=== PATIENT | female | born 1950 | race Caucasian/White ===

== ENCOUNTER → 2023-09-18 | Day surgery (SDC) | payer MEDICARE ==
[~2023-09-18] MED LIST: Dextrose 5%-0.45% NaCl 1,000 ML IV SCH; Midazolam 1 MG/ML 2 ML SDV IV ONE; Midazolam 1 MG/ML 2 ML SDV ONE; fentaNYL 100 MCG/2 ML SDV IV ONE; fentaNYL 100 MCG/2 ML SDV ONE
[2023-09-18] MEDS: fentaNYL 100 MCG/2 ML SDV IV ONE ×2 (06:31→06:32)
[2023-09-18] MEDS: Midazolam 1 MG/ML 2 ML SDV IV ONE ×6 (06:32→06:43)
== END ==
LOC: DL.ENDO 05:24
PROVIDERS: ATTEND Internal Medicine Gastroenterology
DX: K52.831 Collagenous colitis (principal); E78.00 Pure hypercholesterolemia, unspecified; E03.9 Hypothyroidism, unspecified; G47.33 Obstructive sleep apnea (adult) (pediatric); E66.9 Obesity, unspecified; Z68.32 Body mass index [BMI] 32.0-32.9, adult
CPT/HCPCS: 88305; J2250; J3010

== ENCOUNTER 2025-01-06 05:39 | Day surgery (SDC) | payer MEDICARE ==
[2025-01-06] MEDS ORDERED: Propofol 200 MG/20 ML SDV IV ONE (05:40)
[2025-01-06] MEDS ORDERED: Lactated Ringers 1,000 ML IV ONE (05:40)
[2025-01-06] MEDS ORDERED: Propofol 200 MG/20 ML SDV ONE (05:51)
[2025-01-06] MEDS: Lactated Ringers 1,000 ML IV SCH (06:04)
== END 2025-01-06 08:07 | disposition home or self-care (01) ==
LOC: DL.ENDO 05:39
PROVIDERS: ATTEND Internal Medicine Gastroenterology
DX: K21.00 Gastro-esophageal reflux disease with esophagitis, without bleeding (principal); K44.9 Diaphragmatic hernia without obstruction or gangrene; E03.9 Hypothyroidism, unspecified; E66.9 Obesity, unspecified; E66.09 Other obesity due to excess calories; F41.1 Generalized anxiety disorder; Z68.32 Body mass index [BMI] 32.0-32.9, adult
CPT/HCPCS: 43239; J2003; J2704; J7120; 88305